=== PATIENT | female | born 1965 | race African-American/Black ===

== ENCOUNTER 2019-11-29 17:06 | Emergency (ER) | payer OTHER ==
[~2019-11-29] VITALS: Ht 177.8 cm; Wt 120.7 kg
[2019-11-29 17:06] VITALS: BP 102/70
[2019-11-29 18:06] LABS: INFLUENZA A PATIENT NEGATIVE (NEGATIVE); INFLUENZA B PATIENT NEGATIVE (NEGATIVE)
[2019-11-29] MEDS ORDERED: AMOX1TAB61 PO (18:12)
[2019-11-29] MEDS ORDERED: GUAI120L35 PO (18:12)
--- NOTE | 2019-11-29 18:12 | PHYS DOC ---
Past History Past Medical History: No Pertinent History Past Surgical History: Alcohol Use: Occasionally Adult General Chief Complaint Chief Complaint: FLU SYMPTOM HPI HPI Patient is a 54-year-old female who presents with complaint of flulike symptoms that started on Sunday. Patient states that she has had some purulent nasal drainage with postnasal drip and a cough as well. Patient is not sure whether or not she is been running a fever. She denies any chest pain or shortness of breath. Patient states that symptoms are just not improving.[] Review of Systems Review of Systems Constitutional: Denies fever or chills [] HENT: Complains of congestion and sore throat [] Respiratory: Complains of cough without shortness of breath [] Cardiovascular: No additional information not addressed in HPI [] Integument: Denies rash or skin lesions [] Neurologic: Denies headache, focal weakness or sensory changes [] All other systems were reviewed and found to be within normal limits, except as documented in this note. Physical Exam Physical Exam Constitutional: Well developed, well nourished, no acute distress, non-toxic appearance. [] HENT: Normocephalic, atraumatic, frontal sinuses are tender to palpation and percussion, oropharynx moist, no oral exudates, nose normal. [] Eyes: PERRLA, EOMI, conjunctiva normal, no discharge. [] Neck: Normal range of motion, no tenderness, supple. [] Cardiovascular: Regular rate and rhythm[] Lungs & Thorax: Bilateral breath sounds clear to auscultation [] Neurologic: Alert and oriented X 3, no focal deficits noted. [] Current Patient Data Vital Signs Vital Signs Date Time Temp Pulse Resp B/P (MAP) Pulse Ox O2 Delivery O2 Flow Rate FiO2 11/29/19 17:06 101.7 82 22 102/70 (81) 97 Room Air Lab Results Laboratory Tests Test 11/29/19 17:15 Influenza Type A (Rapid) Negative (NEGATIVE) Influenza Type B (Rapid) Negative (NEGATIVE) Group A Streptococcus Rapid Negative (NEGATIVE) EKG EKG [] Radiology/Procedures Radiology/Procedures [] Course & Med Decision Making Course & Med Decision Making Pertinent Labs and Imaging studies reviewed. (See chart for details) [] Dragon Disclaimer Dragon Disclaimer This electronic medical record was generated, in whole or in part, using a voice recognition dictation system. Departure Departure: Impression: Primary Impression: Sinusitis Disposition: HOME, SELF-CARE Condition: STABLE Referrals: PCP,NO (PCP) Patient Instructions: Sinusitis Scripts Guaifenesin/Codeine Phosphate (Codeine-Guaifen 10-100 mg/5 ml) 120 Ml Liquid 5 ML PO PRN Q6HRS PRN for cough and congestion MDD 20 Milliliter(s) for 6 Days, #120 ML 0 Refills Prov: MADELYN ELLIS Jr. DO 11/29/19 Amoxicillin/Potassium Clav (AUGMENTIN 875-125 TABLET) 1 Each Tablet 1 TAB PO BID for infection for 10 Days, #20 TAB 0 Refills Prov: MADELYN ELLIS Jr. DO 11/29/19 Problem Qualifiers Primary Impression: Sinusitis Sinusitis location: frontal Chronicity: acute Recurrence: non-recurrent Qualified Codes: J01.10 - Acute frontal sinusitis, unspecified MDAELYN ELLIS Jr. DO Nov 29, 2019 18:12
[2019-11-29] MEDS ORDERED: AMOXICILLIN/K CLAV 500/125MG TABLET. ONE (18:18)
[2019-11-29] MEDS ORDERED: AMOXICILLIN/K CLAV 875/125MG TABLET. PO ONE (18:45)
== END 2019-11-29 18:20 | disposition home or self-care (01) ==
LOC: ER 17:06
DX: J01.10 Acute frontal sinusitis, unspecified (principal)
CPT/HCPCS: 87070; 87804; 87880; 99283

== ENCOUNTER 2020-10-18 08:39 | Emergency (ER) | payer OTHER ==
[~2020-10-18] VITALS: Ht 175.3 cm; Wt 114.0 kg
[~2020-10-18 08:39] MED LIST: AMOX1TAB61 PO; GUAI120L35 PO
[2020-10-18 08:50] VITALS: BP 115/76
--- NOTE | 2020-10-18 09:15 | PHYS DOC ---
Past History Past Medical History: No Pertinent History Past Surgical History: Alcohol Use: Occasionally Adult General Chief Complaint Chief Complaint: SHORTNESS OF BREATH HPI HPI Patient is a 55-year-old female who presents for Covid-like symptoms. Reports having known Covid positive exposure 13 days ago as one of her family members and there was a large family gathering at the per session. Patient subsequently went to visit other family member [facility] 1 week ago and tested negative via rapid test at that time. Nonetheless, for past 5 days patient has had worsening URI-like symptoms such as nasal congestion, rhinorrhea and postnasal drip with a dry nonproductive cough. She reports having x1 episode of fever yesterday with T-max 102.0 that responded with Motrin administration. Patient concern for potential Covid infection and so, she presents today for testing. No syncope, no lightheadedness or dizziness, no chest pain or ripping tearing-like torso pains, no hemoptysis no abdominal pain, no changes in bladder or bowel function, no lower extremity edema or history of blood clots. Review of Systems Review of Systems Fourteen body systems of review of systems have been reviewed. See HPI for pertinent positives and negative responses, other weston all other systems are negative, non-pertinent or non-contributory Allergies Allergies Allergies Coded Allergies Type Severity Reaction Last Updated Verified No Known Drug Allergies 11/29/19 No Physical Exam Physical Exam General: Appears well, non toxic, and comfortable Skin: Warm, dry. Normal for ethnicity. HEENT: Atraumatic. PERRLA. Rhinorrhea and congestion. Nasal turbinates boggy b/l. Moist mucous membranes. Uvula midline. Maintaining secretions. No phonation changes. Neck: Trachea midline. Normal ROM. No stridor. Respiratory: Normal WOB. No accessory muscle use or tachypnea, crackles present in bilateral lung bases Cardiovascular: Regular rate and rhythm. Normal peripheral perfusion. Abdomen: Soft. Non tender. No distension. Back: Normal ROM. Musculoskeletal: No swelling or deformity. Neuro: Alert and oriented x 4. MAEE. Lymph: No cervical LAD. Psych: Normal affect and mood. Current Patient Data Vital Signs Vital Signs Date Time Temp Pulse Resp B/P (MAP) Pulse Ox O2 Delivery O2 Flow Rate FiO2 10/18/20 08:50 99.6 80 16 115/76 (89) 94 Room Air EKG EKG [] Radiology/Procedures Radiology/Procedures AP chest. HISTORY: Short of breath AP view was taken of the chest. Patient's taken a poor inspiration. There is mild atelectasis or infiltrate in both lung bases. Upper lung zones are clear. IMPRESSION: 1. Poor inspiration. 2. Mild hazy basilar atelectasis or infiltrates. Electronically signed by: Artemio Andrade MD (10/18/2020 9:26 AM) [id number] Heart Score HEART Score for Chest Pain: HEART Score for Chest Pain Response (Comments) Value History Slighlty/Non-Suspicious 0 Age >45 - < 65 1 Risk Factors 1 or 2 Risk Factors 1 Total 2 Risk Factors: Risk Factors: DM, Current or recent (<one month) smoker, HTN, HLP, family history of CAD, obesity. Risk Scores: Risk Factors: DM, Current or recent (<one month) smoker, HTN, HLP, family history of CAD, obesity. Course & Med Decision Making Course & Med Decision Making Discussed with the patient all findings and diagnostic testing. I discussed most likely diagnosis of URI with concern for COVID-19. Patient tested for COVID-19 with results pending, she was instructed to self quarantine and provide supportive care with antihistamine and Flonase use in the meantime. I discussed high risk exposure and lung auscultation findings in addition to radiographs, joint decision was made to start treatment with azithromycin. Patient took 500 mg tablet while in ER and tolerated this well, subsequent prescription written. I stressed need for close outpatient follow-up to review today's ER visit whenever safe and appropriate to do so with primary care physician. Strict return precautions were also discussed at length with good understanding by patient. Patient voiced understanding and agreement with the plan. Patient knows to come back for repeat evaluation if concerning signs or symptoms present prior to outpatient follow-up. Hemodynamically stable, ambulatory and well- appearing at time of disposition. Dragon Disclaimer Dragon Disclaimer This electronic medical record was generated, in whole or in part, using a voice recognition dictation system. Departure Departure: Impression: Primary Impression: Person under investigation for COVID-19 Additional Impression: URI, acute Disposition: 01 DC HOME SELF CARE/HOMELESS Condition: GOOD Referrals: PCP,NO (PCP) Patient Instructions: Upper Respiratory Infection, Adult Additional Instructions: You were seen for upper respiratory symptoms concerning for possible infection with COVID-19. Your physical exam was reassuring. Your chest x-ray did not show any focal pneumonia but there was concern for bibasilar infiltrates as disclosed. We tested you for COVID-19 but this test does not come back for 1 to 2 days. In the meantime you need to quarantine yourself at home away from all other individuals, especially those who are elderly or have any other chronic health issues or an immunocompromised status. You should return to the ED if you develop worsening cough, shortness of breath, chest pain, or any other new or concerning symptoms. Alternate Tylenol and ibuprofen as needed for body aches and pain. If your test does come back positive you need to quarantine yourself for 10 days until symptom-free. You should make sure to drink plenty of fluids and get plenty of rest. Please take prescribed antibiotics as prescribed to completion. Please call your primary care physician immediately after ER departure to discuss need for outpatient follow-up for ER visit today and determine when it is safe for you to follow-up etc. Scripts Azithromycin (AZITHROMYCIN TABLET) 250 Mg Tablet 250 MG PO DAILY for ANTI-BIOTIC for 4 Days, #4 TAB 0 Refills Prov: ALEX FROST DO 10/18/20 Problem Qualifiers ALEX FROST DO Oct 18, 2020 09:15
--- NOTE | 2020-10-18 09:44 | RAD ---
AP chest. HISTORY: Short of breath AP view was taken of the chest. Patient's taken a poor inspiration. There is mild atelectasis or infi ltrate in both lung bases. Upper lung zones are clear. IMPRESSION: 1. Poor inspiration. 2. Mild hazy basilar atelectasis or infiltrates. Electronically signed by: Artemio Andrade MD (10/18/2020 9:26 AM) [id number]
[2020-10-18] MEDS ORDERED: AZIT250T6 PO (10:12)
[2020-10-18] MEDS ORDERED: AZITHROMYCIN 250 MG TABLET. PO ONE (10:15)
--- NOTE | 2020-10-20 15:16 | NUR ---
IP: Patient notified of COVID result. Discussed precautions. There were no questions at this time.
== END 2020-10-18 10:19 | disposition home or self-care (01) ==
LOC: ER 08:39
DX: U07.1 COVID-19 (principal); J06.9 Acute upper respiratory infection, unspecified; R09.81 Nasal congestion; R05 Cough; J34.89 Other specified disorders of nose and nasal sinuses; Z98.890 Other specified postprocedural states
CPT/HCPCS: 71045; 99284; C9803; U0003

== ENCOUNTER 2021-03-14 11:59 | Emergency (ER) | payer OTHER ==
[~2021-03-14] VITALS: Ht 170.2 cm; Wt 114.2 kg
[~2021-03-14 11:59] MED LIST changes: +AZIT250T6 PO
[2021-03-14] MEDS ORDERED: CYCL-331 PO (12:57)
[2021-03-14] MEDS ORDERED: IBUP600T16 PO (12:57)
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
[2021-03-14] MEDS ORDERED: IBUPROFEN 600 MG TABLET. PO ONE (13:00)
[2021-03-14 13:02] VITALS: BP 134/73
== END 2021-03-14 13:03 | disposition home or self-care (01) ==
LOC: ER 11:59
DX: M54.5 Low back pain (principal); R51.9 Headache, unspecified; R42 Dizziness and giddiness; V43.92XA Unspecified car occupant injured in collision with other type car in traffic accident, initial encounter; Y93.89 Activity, other specified; Y92.89 Other specified places as the place of occurrence of the external cause; Y99.8 Other external cause status
CPT/HCPCS: 99283